=== PATIENT | male | born 1985 | race African-American/Black ===

== ENCOUNTER 2021-08-31 11:37 | Emergency (ER) | payer OTHER ==
[~2021-08-31] VITALS: Ht 185.4 cm; Wt 104.3 kg
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
[~2021-08-31 11:37] MED LIST: BENTYL 20 MG TA20 M1 PO; CLARITIN10 MG PO; NABUMETONE 750750 M1 PO
[2021-08-31 11:55] LABS: ABSOLUTE NEUTROPHILS 6.4 thou/uL (1.4-8.2); BASOPHILS 0.6 % (0.0-2.0); EOSINOPHILS 1.5 % (0.0-3.0); HEMATOCRIT 45.8 % (42.0-52.0); HEMOGLOBIN 14.8 gm/dL (14.0-18.0); LYMPHOCYTES 32.5 % (24.0-44.0); MCH 26.7 pg (26.0-34.0); MCHC 32.3 g/dL (28.0-37.0); MCV 82.7 fL (80.0-100.0); MONOCYTES 8.2 % (1.0-8.0); PLATELET COUNT 285 thou/uL (150-400); POLYS 57.2 % (36.0-66.0); RBC 5.54 mil/uL (4.50-6.00); RDW 14.5 % (10.5-14.5); WBC 11.2 thou/uL (4.0-11.0)
[2021-08-31 12:04] LABS: CALCIUM 9.3 mg/dL (8.5-10.1); CREATININE 1.4 mg/dL (0.7-1.3); POTASSIUM 4.1 mmol/L (3.5-5.1)
[2021-08-31 13:00] VITALS: BP 146/87
== END 2021-08-31 13:00 | disposition home or self-care (01) ==
LOC: ER 11:37
PROVIDERS: Nurse Practitioner
DX: T63.441A Toxic effect of venom of bees, accidental (unintentional), initial encounter (principal); Z79.899 Other long term (current) drug therapy; Z88.2 Allergy status to sulfonamides; Y92.89 Other specified places as the place of occurrence of the external cause